=== PATIENT | male | born 1990 | race Caucasian/White ===

== ENCOUNTER 2018-05-24 17:34 | Observation (INO) | payer BC ==
[~2018-05-24] VITALS: Ht 180.3 cm; Wt 66.7 kg
[~2018-05-24 17:34] MED LIST: BACTRIM DS TAB1 EACH PO; IBUPROFEN 800800 MG PO; OTHER MISCELL; TRAMADOL 50 MG50 MG PO
[2018-05-24] MEDS ORDERED: ACYCLOVIR 400400 MG PO (17:42)
[2018-05-24] MEDS ORDERED: [UNRECOGNIZED DRUG - OTHER] INH (17:43)
[2018-05-24 17:56] LABS: ABSOLUTE BASOPHILS 0.1 thou/uL (0.0-0.2); ABSOLUTE EOSINOPHILS 0.2 thou/uL (0.0-0.7); ABSOLUTE MONOCYTES 0.9 thou/uL (0.0-1.2); BASOPHILS 0.6 %; EOSINOPHILS 1.6 %; HEMATOCRIT 46.3 % (42.0-52.0); HEMOGLOBIN 15.7 gm/dL (14.0-18.0); LYMPHOCYTES 29.4 %; MCH 30.4 pg (26.0-34.0); MCHC 33.9 g/dL (28.0-37.0); MCV 89.7 fL (80.0-100.0); MONOCYTES 8.6 %; MPV 7.8 fl. (7.2-11.1); NUCLEATED RBCS 0 /100WBC; PLATELET COUNT* 208 thou/uL (150-400); POLYS 59.8 %; RBC 5.17 mil/uL (4.50-6.00); RDW-CV 12.9 % (10.5-14.5); WBC 10.1 thou/uL (4.0-11.0)
[2018-05-24 18:04] LABS: ANION GAP 5 mmol/L (7-16); BUN 17 mg/dL (7-18); CHLORIDE 104 mmol/L (98-107); CO2 31 mmol/L (21-32); GLUCOSE 107 mg/dL (70-99); POTASSIUM 3.4 mmol/L (3.5-5.1); SODIUM 140 mmol/L (136-145)
[2018-05-24 18:11] LABS: ALBUMIN 4.1 g/dL (3.4-5.0); ALKALINE PHOSPHATASE 74 U/L (46-116); SGOT 21 U/L (15-37); SGPT 24 U/L (30-65); TOTAL BILIRUBIN 0.5 mg/dL (<0.1-1.0); TOTAL PROTEIN 7.1 g/dL (6.4-8.2); TROPONIN-I LEVEL <0.06 ng/mL (<0.06)
[2018-05-24 18:28] LABS: APTT 23.8 Seconds (25.0-31.3); INR 1.1; PROTIME 10.8 Seconds (9.20-11.50)
[2018-05-24 19:29] VITALS: BP 98/53
[2018-05-24 20:33] VITALS: BP 118/70
[2018-05-25] VITALS: BP 125/69
[2018-05-25 01:27] LABS: HEMATOCRIT 47.2 % (42.0-52.0); HEMOGLOBIN 16.1 gm/dL (14.0-18.0); MCH 30.6 pg (26.0-34.0); MCHC 34.1 g/dL (28.0-37.0); MCV 89.8 fL (80.0-100.0); MPV 7.8 fl. (7.2-11.1); RBC 5.25 mil/uL (4.50-6.00); RDW-CV 12.8 % (10.5-14.5)
[2018-05-25 01:36] LABS: ANION GAP 4 mmol/L (7-16); BUN 16 mg/dL (7-18); CALCIUM 9.2 mg/dL (8.5-10.1); CHLORIDE 104 mmol/L (98-107); CO2 30 mmol/L (21-32); CREATININE 0.9 mg/dL (0.6-1.3); GLUCOSE 121 mg/dL (70-99); SODIUM 138 mmol/L (136-145); TROPONIN-I LEVEL <0.06 ng/mL (<0.06)
[2018-05-25 04:39] VITALS: BP 100/60
--- NOTE | 2018-05-25 05:19 | NUR ---
ASSUMED CARE OF PT AT 1940 FROM THE ER. PT WAS REPORTING SEVERE CHEST PAIN. PT IS GETTING MORPHINE FOR CHEST PAIN. PT IS ALERT AND ORIENTED. VSS. PERRLA. PT IS IN SINUS RYTHM ON THE TELEMETRY. PT IS RESTING COMFORTABLY IN BED. RESPIRATIONS ARE EVEN AND NONLABORED. WILL CONTINUE TO MONITOR PT.
[2018-05-25 08:00] VITALS: BP 101/61
[2018-05-25 11:56] VITALS: BP 110/62
[2018-05-25 16:18] VITALS: BP 104/66
--- NOTE | 2018-05-25 19:38 | NUR ---
patinet resting in bed. uneventful shift. vital signs staqble and patinet in no apparent signs of distress. hourly rounding completed for patinet safety.
[2018-05-25 20:10] VITALS: BP 117/69
[2018-05-26] VITALS: BP 109/57
[2018-05-26 04:00] VITALS: BP 105/66
--- NOTE | 2018-05-26 05:04 | NUR ---
Assumed care of patient at 1930. Physical assessment performed and documented. Hourly rounding completed for patient safety. All VSS. Patient A&O; up ad jimmy in room. SB-SR noted on telemetry; O2 saturation 97% on room air. IVL intact and flushed. No c/o pain during shift. Call light within patient's reach. Will continue to monitor.
[2018-05-26 08:00] VITALS: BP 110/58
--- NOTE | 2018-05-26 08:36 | NUR ---
ASSUMED CARE OF PT AT 0730. PT RESTING IN BED WAITING FOR BREAKFAST. PT A&0X4, DENIES ANY PAIN OR SHORTNESS OF BREATH AT THIS TIME. PT GOAL FOR TODAY IS ECHO AND POSSIBLE DISCHARGE HOME THIS AFTERNOON. PT TRACING SR ON THE COMPLEX HUMAN RESOURCES MANAGER. ON RA SAT UPPER 90'S. PT WANTS TO TAKE A SHOWER THIS AM BEFORE BREAKFAST. PT UP AD DEONDRE IN ROOM. AM ASSESSMETN CHARTED. MEDICATIONS PER NOV. PT REPOSITIONS SELF. HOURLY ROUNDING OBSERVED. BED IN LOW POSITION. CALL LIGHT WITHIN REACH. WILL CONTINUE PLAN OF CARE.
[2018-05-26 10:19] VITALS: BP 110/58
--- NOTE | 2018-05-26 10:38 | EKG ---
[place] [address] ELECTROCARDIOGRAM REPORT Name: KELLEY TAYLOR Room: [address] M..#: [id number] Admission: 05/24/18 Attend Phys: Bhavin White, Discharge: Date of : [birth year] Report #: [id number] THIS REPORT FOR: //name// [facility] ED Test Date: 2018-05-24 Test Time: 17:40:44 Pat Name: KELLEY TAYLOR Department: Room: [facility] Gender: M Behavioral Health Specialist: as : 1990 Requested By: Nehal Land Order Number: [id number] MD: Dmitri Slade Measurements Intervals [place] Rate: 67 P: 51 NM: 123 QRS: 72 QRSD: 124 T: 46 QT: 414 QTc: 437 Interpretive Statements Sinus arrhythmia Right bundle branch block Probable left ventricular hypertrophy high st segment takeoff, probable early repolarization Electronically Signed On 05-26-2018 10:37:56 CDT by Dmitri Slade [email or web address] <ELECTRONICALLY SIGNED> By: Dmitri Slade MD, [facility] 05/26/18 [facility] 1740 1740 Dmitri Slade MD, FACC /EPI
--- NOTE | 2018-05-26 10:45 | EKG ---
[place] [address] ELECTROCARDIOGRAM REPORT Name: KELLEY TAYLOR Room: [address] M.R.#: [id number] Admission: 05/24/18 Attend Phys: Bhavin White, Discharge: Date of : [birth year] Report #: [id number] THIS REPORT FOR: //name// [facility] Test Date: 2018-05-25 Test Time: 08:14:07 Pat Name: KELLEY TAYLOR Department: Room: [address] Gender: M Staff Counsel: : 1990 Requested By: Shanelle Dong Order Number: [id number] [place] MD: Dmitri Slade Measurements Intervals [place] Rate: 67 P: 49 NM: 127 QRS: 69 QRSD: 121 T: 55 QT: 383 QTc: 405 Interpretive Statements Sinus rhythm Right bundle branch block Probable left ventricular hypertrophy inferior and anterolateral st elevation, most compatible with early repolarization since prior ekg high st segment takeoff persists Electronically Signed On 05-26-2018 10:45:35 CDT by Dmitri Slade [email or web address] <ELECTRONICALLY SIGNED> By: Dmitri Slade MD, [facility] 05/26/18 1045 0814 0814 Dmitri Slade MD, [facility] /EPI
[2018-05-26] MEDS ORDERED: COLCHICINE0.6 MG PO (12:17)
[2018-05-26] MEDS ORDERED: IBUPROFEN 600600 M1 PO (12:18)
[2018-05-26 12:23] VITALS: BP 120/72
--- NOTE | 2018-05-26 14:07 | NUR ---
DR OREILLY HERE TO SEE PT. OK FOR DISCHARGE. DR MENA NOTIFIED. DISCHARGE ORDERS RECEIVED. DISCHARGE INSTRUCTIONS, CARE NOTES, SCRIPTS AND FOLLOW UP APPTS GIVEN TO PT. PT COMMUNICATES UNDERSTANDING OF DISCHARGE TEACHING. IV AND PROFESSOR OF SPECIAL EDUCATION REMOVED. PT DISCHARGED WITH ALL BELONGINGS AND PAPERWORK VIA WHEELCHAIR TO SPOUSE OWN PERSONAL VEHICLE.
--- NOTE | 2018-05-27 11:10 | CON ---
[address] [address] CONSULTATION Name: KELLEY TAYLOR Room: [address] Ernestine Jaime#: [id number] Admission: 05/24/18 Attend Phys: Bhavin White, Discharge: 05/26/18 Date of : 86 Report #: [id number] THIS REPORT FOR: //name// CC: ZOILA physician/PCP Bhavin White TYPE OF REPORT: Cardiology consultation. INDICATION: Chest pain. HISTORY OF PRESENT ILLNESS: The patient is a 28-year-old gentleman who developed midsternal chest discomfort radiating to the back, worse with changes in position and improved by leaning over. The pain is definitely worse with deep breath. EKG shows diffuse ST-segment elevation consistent with pericarditis. The patient reports upper respiratory tract infection last week. With anti-inflammatory agents, his pain has improved. He is without other cardiac complaint. He does report similar symptoms that were much milder in duration and character approximately a year or two ago. He is without other cardiac complaint at this time. PAST MEDICAL HISTORY: Unremarkable. SOCIAL HISTORY: The patient quit smoking approximately a year ago. 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 Significant other in family are present with him. PHYSICAL EXAMINATION: VITAL SIGNS: Blood pressure 106/60 and pulse 60 and regular. GENERAL: This is a thin, pleasant gentleman who is in no distress. HEENT: The patient's head is normocephalic and atraumatic. Extraocular muscles intact. NECK: Shows no jugular venous distention. CHEST: Reveals clear lung cano without wheezes or rales. CARDIOVASCULAR: Reveals regular rhythm without gallop or murmur. I do not appreciate a rub. ABDOMEN: Reveals normal bowel sounds. The abdomen is soft and nontender. EXTREMITIES: Show no edema. SKIN: Warm and dry. RADIOLOGICAL DATA: A 12-lead EKG shows sinus rhythm with diffuse ST-segment elevation consistent with early repolarization, possibly pericarditis. LABORATORY DATA: Reviewed and are unremarkable. Troponin less than 0.06 on 2 [place] [address] CONSULTATION Name: KELLEY TAYLOR Room: [address]#: [id number] Admission: 05/24/18 Attend Phys: Bhavin White, Discharge: 05/26/18 Date of : 86 Report #: [id number] IMPRESSION AND RECOMMENDATIONS: Acute pericarditis. Recommend ibuprofen 800 mg p.o. b.i.d. x 2 weeks and colchicine 0.6 mg p.o. b.i.d. x 2 months. <ELECTRONICALLY SIGNED> By: Damian Engel MD, [facility] 05/27/18 1110 1029 [address]16[facility]rigoberto Engel MD, FACC /nt
== END 2018-05-26 14:06 | disposition home or self-care (01) ==
LOC: M.ERS 17:34 → M.TBA-ER 18:43 → M.2W 18:43
PROVIDERS: Nurse Practitioner Family; Personal Emergency Response Attendant; ADMIT Family Medicine
DX: I30.9 Acute pericarditis, unspecified (principal); E87.6 Hypokalemia; R07.89 Other chest pain; Z72.89 Other problems related to lifestyle; Z87.891 Personal history of nicotine dependence